=== PATIENT | female | born 1955 | race Caucasian/White ===

== ENCOUNTER → 2016-09-16 | Outpatient (CLI) | payer BC ==
[~2016-09-16] MED LIST: BND25X PO; BUPR-79 PO; CHOL100027 PO; CITA20TA9 PO; GABA-113 PO; LEVO75TA PO; MAGN250T3 PO; MAGN400T6 PO; TRAM-10 PO
== END | disposition home or self-care (01) ==
LOC: C.MAMM 12:41
PROVIDERS: ATTEND Internal Medicine
DX: M85.89 Other specified disorders of bone density and structure, multiple sites (principal)

== ENCOUNTER → 2017-06-09 | Outpatient (CLI) | payer BC ==
[~2017-06-09] VITALS: Ht 170.2 cm; Wt 93.6 kg
[~2017-06-09] MED LIST changes: -BUPR-79 PO; -MAGN400T6 PO
[2017-06-09 10:04] VITALS: BP 130/77; PULSE 108; Ht 170.2 cm; Wt 93.6 kg
== END | disposition home or self-care (01) ==
LOC: C.NEUR 09:50
PROVIDERS: ATTEND Internal Medicine Pulmonary Disease
DX: G47.33 Obstructive sleep apnea (adult) (pediatric) (principal); G47.00 Insomnia, unspecified; G47.19 Other hypersomnia; Z72.821 Inadequate sleep hygiene

== ENCOUNTER → 2017-06-21 | Outpatient (CLI) | payer BC ==
[~2017-06-21] MED LIST changes: +BUPR-79 PO; +CYM/30 PO; +DULO60CA44 PO; +LEVO88TA3 PO
--- NOTE | 2017-06-22 07:33 | PAP/PSG TECHNICIAN REPORT ---
[facility] Rubber Flap Cutter Polysomnogram Report Study name: None Report date: 06/22/2017 Study date: 06/21/2017 Referring Physician: DR. CARROLL PRO Name: JAYLEEN CASTELAN Interpreting Physician: Sony Mckeon D.O. Date of : 1955 Rubber Flap Cutter: Yara Perez, PSGT. Sex: Female Age: 61 StudyType: PSG Weight: 206 lbs Height: 61 years, Height 5' 7" Neck Circum:16 inches BMI: 32.26 Medications: Benadryl, Levothyroxine, Gabapentin, Tramadol, Vit.D, Celexa. Patient History 61 yr. old female presents for a split night study. > 15. she suffers from daytime somnolence, snoring and gasping for breath. Patient states that she takes Benadryl every night prior to bed, she wakes at 2:00 am and brews a pot of coffee and smokes and lets cat in and out, plays on the computer or phone. ESS= 15, Neck = 16 inches. Parameters Monitored NPSG: E1-M2, E2-M1, Fp1-M2, Fp2-M1, F3-M2, F4-M2, F4-M1, C3-M2, C4-M2, C4-M1, O1-M2, O2-M2, O2-M1, T3-M2, T4-M1, P3-M2, P4-M1, CHIN1, CHIN2, HR, EKG, Legs, PFLOW, SNOR, FLOW, CFLOW, Tidal Volume, THOR, ABDO, SpO2, PLTH, CPRESS, ETCO2 Wave, ETCO2, pH Sleep Architecture Sleep Stages Time at Lights Off 11:09:13 PM STAGES Time (min.) TST (%) Time at Lights On 5:18:43 AM Wake 60.0 -- Total Recording Time (TRT) 368.50 min. N1 3.0 1 Total Sleep Period (TSP) 316.0 min. N2 130.5 42 Total Sleep Time (TST) 308.5min. N3 89.0 29 Awake Time 60.0 min. REM 86.0 28 Wake after Sleep Onset 52.5 min. Sleep Efficiency (SE) 84 % Sleep Onset Latency (DAVID) 8.5 min. Number of Stage 1 Shifts None Awakenings 4 Stage Changes 27 Number of REM periods 2 REM 86.0 28 REM Latency 89.5 min. NREM 222.5 72 Body Position Analysis Supine Right Left Side Prone Vertical Total Sleep Time (min.) 214.8 0.0 151.2 151.22 0.0 0.0 Total Sleep Time (%) 51% 0% 49% 49 0% N/A% Total Sleep Time REM (min.) 37.5 0.0 48.5 None 0.0 0.0 Total Sleep Time NREM (min.) 119.8 0.0 102.7 None 0.0 0.0 Intermittent Wake (min.) 57.5 0.0 2.5 None 0.0 0.0 Total Sleep Period (%) 51% None None None None None Arousals Myoclonus (PLM) * Events Count Index Events Count Index Spontaneous 21 4 Events Awake (PLMW) 3 3.0 Respiratory 1 0.2 Events Asleep w/ Arousal (PLMA) 1 0.2 PLM 1 0 Events Asleep w/o Arousal (PLMS) 68 13.2 Snoring 3 1 Total Asleep 69 13.4 Total 26 5 Total 72 12 Respiratory Analysis * CA OA MA CH H RERA Total Count 1 2 0 0 17 0 20 Index 0.2 0.4 0.0 0 3.3 0 3.9 Mean Duration 10.8 14.2 0.0 0.00 21.3 0.0 20.0 Longest Duration 10.8 15.4 0.0 0.00 0.0 0.0 48.9 Respiratory Event Summary Total Supine ~Supine Right Left Prone REM NREM Apneas Count 3 2 1 N/A 1 N/A 0 3 Index 0.6 1 0 N/A 0.4 N/A 0 1 Hypopneas (4% Desat) Count 17 16 1 N/A 1 N/A 13 4 Index 3.3 6.1 0 N/A 0.4 N/A 9.1 1.1 Apneas & All Hypopneas Count 20 18 2 N/A 2 N/A 13 7 Index 3.9 7 1 N/A 1 N/A 9.1 1.9 Respiratory Events (Manager Code+All Hyp+RERA) Count 20 18 2 N/A 2 N/A 13 7 Index 3.9 7 1 N/A 0.8 N/A 9.1 1.9 Respiratory Related Arousal Count 1 18 0 N/A 0 N/A 1 0 Index 0.2 0 0 N/A 0 N/A 1 0 Snoring Analysis Supine Right Left Prone REM NREM Total Snore duration 7.9 min Snores count 330 N/A 82 N/A 80 332 412 Snore mean duration 1.2 Sec Snores index 126 N/A 33 N/A 55.8 89.5 80.1 TST with snoring (%) 2.6% Desaturation Event Summary: Minimum %SpO2 Event Count Mean/Min/Max Duration(sec.) Desaturation Index % Time In Bed > 90 26 21.8 / 5.0 / 59.0 8.5 53.7 86 - 90 14 18.9 / 6.3 / 44.0 5.3 46.0 81 - 85 0 N/A 0.0 0.3 76 - 80 0 N/A 0.0 0.0 71 - 75 0 N/A 0.0 0.0 66 - 70 0 N/A 0.0 0.0 61 - 65 0 N/A 0.0 0.0 56 - 60 0 N/A 0.0 0.0 51 - 55 0 N/A 0.0 0.0 < 50 0 N/A 0.0 0.0 Total REM NREM Awake <50% 0.0 min. 0.0 min. 0.0 min. 0.0 min. 51 - 60% 0.0 min. 0.0 min. 0.0 min. 0.0 min. 61 - 70% 0.0 min. 0.0 min. 0.0 min. 0.0 min. 71 - 80% 0.0 min. 0.0 min. 0.0 min. 0.0 min. 81 - 90% 158.2 min. 24.7 min. 129.5 min. 4.0 min. 91 - 100% 183.6 min. 61.3 min. 93.0 min. 29.3 min. Average 91 91 90 92 Minimum SpO2 83 83 86 84 Desaturation Event Index 5.4 10.5 4.9 0.0 # Desat. Events below 89% 20 9 11 N/A Time(%) with Saturation below 89% 3.9 2.6 1.3 0.0 Time(min.) with Saturation below 89% 13.4 8.8 4.4 0.2 Time (mins) REM (mins) NREM (mins) % of TST SpO2 Below 90% 31 13 N18 14.8 SpO2 Below 88% 7 0 0 2 Heart Rate Analysis Min (bpm) Max (bpm) Average (bpm) Awake 74 104 87 NREM 78 100 87 REM 75 95 86 Overall 75 100 87 Supplemental O2 Values Minimum O2 level: None Value Start Time End Time Rubber Flap Cutter Comments PSG Study MS. Castelan slept in the left, and supine positions. No cardiac arrhythmia or PLM's noted. No bruxism noted. Snoring was noted and scored as a 3 on a scale of 1 through 5. (0=no snoring, 5=snoring loud enough to be heard through a closed door or down the [address] way) Ms. Castelan awoke to use the restroom zero times during the night. Ms. Castelan stated, I slept better than I do when I am in my own bed. The final report will be interpreted and signed by a sleep physician. The completed physician report will then be placed in the patient medical record. Patient slept well , she turned all electronics off at lights out. She slept through the night .Mild snoring was displayed , no significant respiratory events seen. Therapy (cm H2O) 0 TIB (min.) 368.5 TST (min.) 308.5 Sleep Onset (min.) 8.5 REM Onset From Sleep (min.) 89.5 Sleep Efficiency % 84 Wakefulness (%) 16 Wakefulness (min.) 60.0 NREM 1 (%) 1 NREM 1 (min.) 3.0 NREM 2 (%) 42 NREM 2 (min.) 130.5 NREM 3 (%) 29 NREM 3 (min.) 89.0 REM (%) 28 REM (min.) 86.0 # Arousals 26 Arousal Index 5 # Snore 412 Snore Index 80.1 AHI 3.9 AHI Supine 7 AHI Non-Supine 1 NREM AHI 1.9 REM AHI 9.1 RDI 3.9 # Obstructive Apnea 2 # Central Apnea 1 # Mixed Apnea 0 # Hypopneas 17 RERAs 0 Total Respiratory Events 21 Time Below SpO2 89% (min.) 13.2 Mean NREM SpO2 (%) 90 Mean REM SpO2 (%) 91 Mean Sleep SpO2 (%) 91 Min NREM SpO2 (%) 86 Min REM SpO2 (%) 83 Position Supine (min.) 214.8 Position Non-supine (min.) 151.2 LM Index Sleep 13.4 LM Index NREM 8.6 LM Index REM 25.8 Mean Heart Rate (bpm) 87 Min Heart Rate (bpm) 75
--- NOTE | 2017-06-24 16:16 | Sleep Study ---
Sleep Study Report Date of Service: 06/21/2017 Sleep Study Report Clinical data: The patient is a 61-year-old female. Her BMI is 32.26. She has symptoms of snoring, disturbed nocturnal sleep, and excessive daytime somnolence. Her [place] sleepiness score is 20. She has a history of fibromyalgia. This was an in-lab nocturnal polysomnography. Sleep architecture: The total sleep period was 316 minutes. The total sleep time was 308.5 minutes. The sleep efficiency was mildly reduced at 84 percent. The sleep onset latency was 8.5 minutes. Wake after sleep onset was 52.5 minutes. The REM latency was 89.5 minutes. Sleep consisted of stage N1 1 percent, stage N2 42 percent, stage N3 29 percent , stage REM 28 percent. Arousal data: The patient had a total of 26 arousals including 21 spontaneous arousals, 1 respiratory arousal, 1 PLM arousal, and 3 snoring arousals. The arousal index was 5. PLM data: The patient had 69 periodic limb movements of sleep for a PLM index of 13.4. There was 1 arousal associated with limb movements for a PLM arousal index of 0.2. EKG: The underlying rhythm was normal sinus. The cardiac rates ranged from 75- 100 beats per minute. The average heart rate was 87 beats per minute. There was a rare supraventricular premature contraction. Respiratory data: The patient had a total of 20 respiratory events including 1 central apnea, 2 obstructive apneas, and 17 hypopneas. The longest apnea was 15.4 seconds. The mean duration of the hypopneas was 21.3 seconds. Hypopneas were scored according to the 4 percent desaturation rule. The apnea-hypopnea index was 3.9. This represents no significant sleep apnea. Oximetry data: The average saturation for the night was 91 percent. The minimum saturation was 83 percent. There was a total of 13.4 minutes with saturations less than 89 percent. There was 7 minutes with saturations less than 88 percent. These desaturations occurred when the patient was in REM sleep and in the supine position. Signals Analyst comments: The patient slept on the left and supine positions. No cardiac arrhythmia noted. No bruxism noted. Snoring was noted and scored as a 3 on a scale of 1 through 5. The patient awoke to use the restroom 0 times during the night. She stated that she slept better than she does when she is in her own bed. Impressions: 1. Primary snoring 2. Abnormal sleep hygiene Comments: the patient had a mild decrease in sleep efficiency. She actually slept well until she awakened at approximately 4:33 a.m. and she did not go back to sleep. The relatively few respiratory events she had occurred mainly when she was in REM sleep and supine. The patient does have bad sleep habits. She awakens during the nighttime and she will get up and make coffee and smoke. I suspect she slept better in the sleep lab because she knew she could not do that. Recommendations: 1. It is advised that the patient if possible avoid sleeping in the supine position. 2. Weight loss is advised in light of the elevation of body mass index of 32.26. 3. It is advised that the patient not make coffee or smoke during the nighttime. 4. The patient should have a fairly regular sleep-wake schedule and allowing approximately 7.5 hours for sleep. Copies To 1: Sony Mckeon DO; Juan F Valentino M.D.
== END | disposition home or self-care (01) ==
LOC: C.NEUR 21:00
PROVIDERS: ATTEND Internal Medicine Pulmonary Disease
DX: G47.33 Obstructive sleep apnea (adult) (pediatric) (principal); Z72.821 Inadequate sleep hygiene